=== PATIENT | female | born 1990 | race Caucasian/White ===

== ENCOUNTER 2018-03-25 05:55 | Emergency (ER) | payer MEDICAID ==
[~2018-03-25] VITALS: Ht 154.9 cm; Wt 134.0 kg
[2018-03-25 07:47] VITALS: BP 142/87
== END 2018-03-25 08:49 | disposition home or self-care (01) ==
LOC: ER 05:55
DX: L03.312 Cellulitis of back [any part except buttock and flank] (principal); R03.0 Elevated blood-pressure reading, without diagnosis of hypertension; F17.200 Nicotine dependence, unspecified, uncomplicated
CPT/HCPCS: 99283

== ENCOUNTER 2020-03-29 00:13 | Emergency (ER) | payer MEDICAID ==
[~2020-03-29] VITALS: Ht 157.5 cm; Wt 142.0 kg
[2020-03-29 00:21] VITALS: BP 152/87
[2020-03-29] MEDS: IBUPROFEN 600MG TABLET PO STA (01:03)
== END 2020-03-29 02:40 | disposition home or self-care (01) ==
LOC: ER 00:13
DX: M25.511 Pain in right shoulder (principal); M54.2 Cervicalgia; M25.561 Pain in right knee; V43.52XA Car driver injured in collision with other type car in traffic accident, initial encounter; Y93.9 Activity, unspecified; Y92.410 Unspecified street and highway as the place of occurrence of the external cause
CPT/HCPCS: 73030; 99283